=== PATIENT | male | born 1950 | race African-American/Black ===

== ENCOUNTER 2018-11-15 09:38 | Inpatient (IN) | payer OTHER ==
[2018-11-15 10:20] VITALS: BMI 20.3
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
[2018-11-15] MEDS ORDERED: guaiFENesin 200 MG/10 ML 10 ML UNIT-DOSE CUPS PO PRN (15:29)
[2018-11-15] MEDS ORDERED: MENTHOL/PHENOL 1 EACH UD MM PRN (15:29)
[2018-11-15] MEDS ORDERED: P-EPHED 60MG/TRIPROLIDI 2.5MG TABLET PO PRN (15:29)
[2018-11-15] MEDS ORDERED: MAG HYDROX/AL HYDROX/SIMETH 30 ML UNIT-DOSE CUP PO PRN (15:29)
[2018-11-15] MEDS ORDERED: MAGNESIUM HYDROX 2400MG/30ML ORAL SUSPENSION 30 ML CUP PO PRN (15:29)
[2018-11-15] MEDS ORDERED: IBUPROFEN 400 MG TABLET (FP) PO PRN (15:29)
[2018-11-15] MEDS ORDERED: LOPERAMIDE HCL 2 MG CAPSULE PO PRN (15:29)
[2018-11-15] MEDS ORDERED: MAGNESIUM CITRATE 300 ML BOTTLE PO PRN (15:29)
[2018-11-15] MEDS ORDERED: hydrOXYzine PAMOATE 25 MG CAPSULE (FP) PO PRN (15:29)
[2018-11-15] MEDS ORDERED: ACETAMINOPHEN 325 MG TABLET (FP) PO PRN (15:29)
[2018-11-15] MEDS: THIAMINE HCL 100 MG TABLET (FP) PO SCH (21:49)
[2018-11-15] MEDS: NICOTINE 7 MG/24 HOURS TOPICAL PATCH TD SCH (21:49)
[2018-11-15] MEDS ORDERED: MELATONIN 5 MG TABLETS PO PRN (22:00)
[2018-11-16 01:07] LABS: EPI CELLS 3.1 /HPF (0-5/HPF); HYALINE CASTS 3 /lpf (0-8); PH,URINE 5.5 (5.0-8.0); URINE APPEARANCE CLEAR; URINE BACTERIA 7827.6 /hpf (NEGATIVE); URINE BILIRUBIN NEGATIVE (NEGATIVE); URINE COLOR YELLOW; URINE GLUCOSE (UA) NEGATIVE (NEGATIVE); URINE KETONE NEGATIVE (NEGATIVE); URINE LEUK ESTERASE 1+ (NEGATIVE); URINE NITRITE POSITIVE (NEGATIVE); URINE PROTEIN NEGATIVE (NEGATIVE); URINE RBC 1 /hpf (0-4); URINE UROBILINOGEN 0.2 mg/dL (0.2-1.0); URINE WBC 17 /hpf (0-5)
[2018-11-16] MEDS: PRENATAL VITAMINS W/ FOLIC ACID TABLET (FP) PO SCH (10:10)
[2018-11-16] MEDS: ASPIRIN 81 MG CHEWABLE TABLETS PO SCH (10:10)
[2018-11-16] MEDS: NICOTINE 7 MG/24 HOURS TOPICAL PATCH TD SCH (10:10)
[2018-11-16] MEDS: ENALAPRIL MALEATE 5 MG TABLET (FP) PO SCH (11:00)
[2018-11-16 11:47] LABS: HEMATOCRIT 35.7 % (35.4-49); HEMOGLOBIN 11.9 GM/dL (11.7-16.9); MCH 33.4 pg (25.7-33.7); MCHC 33.3 g/dl (32.0-35.9); MEAN CELL VOLUME 100.4 fl (80-96); MEAN PLT VOLUME 8.2 fl (7.5-11.1); RBC 3.55 M/mm3 (4.00-5.60); RDW 15.6 % (11.9-15.9); WHITE BLOOD COUNT 3.2 K/mm3 (4.0-10.0)
[2018-11-16 12:03] LABS: ALBUMIN 2.9 g/dl (3.4-5.0); BILIRUBIN,TOTAL 0.5 mg/dL (0.2-1); CALCIUM 8.8 mg/dL (8.5-10.1); CREATININE 1.3 mg/dL (0.55-1.3); POTASSIUM 3.9 mmol/L (3.5-5.1); TOT PROT 7.2 g/dl (6.4-8.2)
--- NOTE | 2018-11-16 12:21 | EKG ---
Test Reason : Blood Pressure : / mmHG Vent. Rate : 066 BPM Atrial Rate : 066 BPM P-R Int : 422 ms QRS Dur : 102 ms QT Int : 414 ms P-R-T Axes : 075 -52 240 degrees QTc Int : 434 ms SINUS RHYTHM WITH 1ST DEGREE A-V BLOCK LEFT AXIS DEVIATION LEFT VENTRICULAR HYPERTROPHY WITH REPOLARIZATION ABNORMALITY Diffuse nonspecific T Wave abnormality ABNORMAL ECG NO PREVIOUS ECGS AVAILABLE CLINICAL CORRELATION IS RECOMMENDED Confirmed by TI MARSHALL, MARISOL ([id number]) on 11/16/2018 12:21:25 PM Referred By: ALONDRA STEVENSON Confirmed By:MARISOL LUKE MD
[2018-11-16 12:38] LABS: PLATELET COUNT 131 K/MM3 (134-434)
[2018-11-16] MEDS: THIAMINE HCL 100 MG TABLET (FP) PO SCH (21:36)
[2018-11-17] MEDS ORDERED: PT OWN MED DRAWER 7, Y5N ONE (08:55)
[2018-11-17] MEDS: ENALAPRIL MALEATE 5 MG TABLET (FP) PO SCH (10:11)
[2018-11-17] MEDS: ASPIRIN 81 MG CHEWABLE TABLETS PO SCH (10:11)
[2018-11-17] MEDS: NICOTINE 7 MG/24 HOURS TOPICAL PATCH TD SCH (10:11)
[2018-11-17] MEDS: PRENATAL VITAMINS W/ FOLIC ACID TABLET (FP) PO SCH (10:11)
[2018-11-17] MEDS: THIAMINE HCL 100 MG TABLET (FP) PO SCH (21:35)
[2018-11-18] MEDS ORDERED: PT OWN MED DRAWER 7, Y5N ONE (08:51)
[2018-11-18] MEDS: NICOTINE 7 MG/24 HOURS TOPICAL PATCH TD SCH (10:17)
[2018-11-18] MEDS: ASPIRIN 81 MG CHEWABLE TABLETS PO SCH (10:18)
[2018-11-18] MEDS: ENALAPRIL MALEATE 5 MG TABLET (FP) PO SCH (10:18)
[2018-11-18] MEDS: PRENATAL VITAMINS W/ FOLIC ACID TABLET (FP) PO SCH (10:18)
[2018-11-18] MEDS: THIAMINE HCL 100 MG TABLET (FP) PO SCH (21:19)
[2018-11-19 07:08] VITALS: TEMP 97.9
[2018-11-19] MEDS ORDERED: PT OWN MED DRAWER 7, Y5N ONE (08:28)
[2018-11-19] MEDS: ASPIRIN 81 MG CHEWABLE TABLETS PO SCH (09:15)
[2018-11-19] MEDS: NICOTINE 7 MG/24 HOURS TOPICAL PATCH TD SCH (09:15)
[2018-11-19] MEDS: PRENATAL VITAMINS W/ FOLIC ACID TABLET (FP) PO SCH (09:16)
[2018-11-19] MEDS: ENALAPRIL MALEATE 5 MG TABLET (FP) PO SCH (09:16)
[2018-11-19 10:30] VITALS: BP 107/66; PULSE 69
--- NOTE | 2018-11-19 11:05 | PN ---
S Progress Note Note: patient c/o right hip pain and also has neuropathy r/t HIV infection. Has hx of right hip fracture. Discussed with patient medications that are effective for pain relief. Patient states naprosyn is effective. Motrin d/c'd, naprosyn started; also started gabapentin for neuropathy. Patient does not remember dose of gabapentin. Started at 400mg TID and will titrate up as needed.
[2018-11-19] MEDS ORDERED: GABAPENTIN 400 MG CAPSULE (FP) PO ONE (11:16)
[2018-11-19] MEDS: NAPROXEN 500 MG TABLET (FP) PO PRN ×2 (11:30→21:10)
[2018-11-19] MEDS ORDERED: GABAPENTIN 400 MG CAPSULE (FP) PO SCH ×2 (14:00→22:00)
--- NOTE | 2018-11-19 16:06 | PN ---
[facility] Progress Note (SOAP) Subjective: Client is PPD+. He states he had CXRs at [facility], [place], and [place] that indicated he did not have TB. Denies fevers, bloody sputum cough, night sweats of other symptoms of TB. Hx of HIV infection. Objective: Afibrile, lungs clear. CBC, BMP 11/15/18 09:45 11/15/18 09:45 Vital Signs (72 hours) 11/17/18 11/17/18 11/17/18 00:30 03:30 07:19 Temperature Pulse Rate Respiratory 18 18 18 Rate Blood Pressure 11/17/18 11/18/18 11/18/18 09:19 03:30 07:28 Temperature 97.7 F Pulse Rate 81 65 Respiratory 18 18 Rate Blood Pressure 119/74 132/86 11/18/18 11/19/18 11/19/18 09:32 00:30 03:30 Temperature Pulse Rate 72 Respiratory 18 18 Rate Blood Pressure 144/86 11/19/18 11/19/18 07:07 10:00 Temperature 97.9 F Pulse Rate 87 69 Respiratory 18 Rate Blood Pressure 123/71 107/66 11/19/18 16:01 11/19/18 16:03 Assessment: PPD+, need verification that he does not have TB. 11/19/18 16:03 Plan: Requests for CXR was sent to [facility] and [place]. Tomorrow the counselor will send a request for CXR to [facility]. Counselor will also call the patient's PCP and request any documentation of CXR. Client has signed consents for [facility] to obtain the CXR reports.
[2018-11-19] MEDS: THIAMINE HCL 100 MG TABLET (FP) PO SCH (21:09)
--- NOTE | 2018-11-19 21:56 | PN ---
S Progress Note Note: MD'S NOTE: INFORMED THT THE PT. WANTS TO SIGN OUT AMA FOR PERSONAL REASONS. SO, THE PT. SIGNED OUT AMA AND ABOUT TO LEAVE THE FACILITY SOON. RECOMMENDED: TO F/U WITH PMD AND OUT PT. PROGRAMS. PROVIDER: DELMI ZHU MD
== END 2018-11-19 22:58 | disposition left against medical advice (07) | DRG 894 ==
LOC: YASAS 09:38 → Y3E 16:35
PROVIDERS: ADMIT Neuromusculoskeletal Medicine & OMM; ATTEND Neuromusculoskeletal Medicine & OMM
PROC: HZ42ZZZ Group Counseling for Substance Abuse Treatment, Cognitive-Behavioral (ICD-10-PCS; principal; 2018-11-15)
DX: F10.20 Alcohol dependence, uncomplicated (principal); F14.20 Cocaine dependence, uncomplicated; Z21 Asymptomatic human immunodeficiency virus [HIV] infection status; I25.119 Atherosclerotic heart disease of native coronary artery with unspecified angina pectoris; I10 Essential (primary) hypertension; G62.9 Polyneuropathy, unspecified; M25.551 Pain in right hip; R76.11 Nonspecific reaction to tuberculin skin test without active tuberculosis; R63.4 Abnormal weight loss; Z68.21 Body mass index [BMI] 21.0-21.9, adult; Z87.81 Personal history of (healed) traumatic fracture
CPT/HCPCS: 36415; 80053; 81003; 85027; 86593; 93005; 93010